=== PATIENT | male | born 1950 | race Caucasian/White ===

== ENCOUNTER 2017-11-08 14:50 | Emergency (ER) | payer OTHER ==
[2017-11-08 15:30] VITALS: PULSE 95; BMI 27.3
[2017-11-08 16:12] LABS: BASO % 0.6 % (0-2.0); EOS % 1.1 % (0-4.5); HEMATOCRIT 42.8 % (35.4-49); HEMOGLOBIN 14.9 GM/dL (11.7-16.9); LYMPH % 15.1 % (8-40); MCH 31.7 pg (25.7-33.7); MCHC 34.8 g/dl (32.0-35.9); MEAN CELL VOLUME 91.2 fl (80-96); MEAN PLT VOLUME 7.9 fl (7.5-11.1); MONO % 6.8 % (3.8-10.2); NEUT % 76.4 % (42.8-82.8); PLATELET COUNT 256 K/MM3 (134-434); RDW 13.6 % (11.9-15.9); WHITE BLOOD COUNT 7.7 K/mm3 (4.0-10.0)
--- NOTE | 2017-11-08 16:18 | PDOC ---
Attending Attestation - Resident Resident Name: VipincyrusNicola - ED Attending Attestation I have performed the following: I have examined & evaluated the patient, The case was reviewed & discussed with the resident, I agree w/resident's findings & plan, Exceptions are as noted - HPI HPI: 11/08/17 16:21 67 yo M, no past medical history presenting to the ER with upper and lower extremity weakness Pt has had a wound in the right occipital area No trauma No fevers or chills Pt states this wound has been present for the past year He has been lost to follow up Pt daughter has not seen him in several months and when she saw him today, she brought him to the ER Pt has generalized weakness Otherwise, lesion has not acutely changed 11/08/17 17:35 - Physicial Exam PE: 11/08/17 16:18 GENERAL: The patient is in no acute distress, tamazight speaking. HEAD: Normal EYES: PERRLA, EOMI, sclera anicteric, conjunctiva clear. ENT: Ears normal, nares patent, oropharynx clear without exudates. Moist mucous membranes. NECK: Normal range of motion, supple LUNGS: Breath sounds equal, clear to auscultation bilaterally. No wheezes, and no crackles. HEART: Regular rate and rhythm, normal S1 and S2 without murmur, rub or gallop. ABDOMEN: Soft, nontender, EXTREMITIES: Normal range of motion NEUROLOGICAL: Cranial nerves II through XII grossly intact. Normal speech. No focal neurological deficits. SKIN: Right occipital scalp/neck, fungating lesion noted, which is OPEN, appears to be bleeding, no surrounding erythema, no purulence, no warmth 11/08/17 17:37 - Medical Decision Making 11/08/17 16:24 67 yo m presenting to the ER with 1 year wound which has worsened and is now fungating AND generalized weakness Will do Labs EKG Head CT EKG: SR 93 bpm, axis nml, intervals nml, no st elevations or depressions 11/08/17 17:34 Laboratory Tests 11/08/1718 18 16:00 16:00 16:00 WBC 7.7 Hgb 14.9 Hct 42.8 Plt Count 256 INR 0.96 Sodium 139 Potassium 4.1 Chloride 104 Carbon Dioxide 26 BUN 15 Creatinine 0.7 Random Glucose 101 11/08/17 17:38 CT: negative Pt ambulatory with a steady gait in the ER Will discharge to home Will ask pt to follow up with [facility] on FRIDAY Daughter asked to bring him to the resident walk in clinic on Friday If they are unable to follow up, the patient should be brought back to the ER The patient has no signs of erythema to suggest cellulitis (Will not start antibiotics) This patient's daughter was told that these symptoms could possibly be related to cancer 11/08/17 23:10 Clinical impression: fungating lesion of the neck Discharge Disposition - Diagnosis Skin lesion - Discharge Dispostion Disposition: HOME Condition at time of disposition: Stable - Referrals Referrals: Teodoro Moore MD [Staff Physician] - Alea Browne MD [Staff Physician] - - Patient Instructions Additional Instructions: Please return to the ER if symptoms persist, worsen, or new symptoms arise. Please follow up with the resident clinic on Friday. Please call Dr. Browne (heme /oncology) on Friday morning to schedule an appointment. Please return to the ER if you have any signs or symptoms of chest pain, shortness of breath, uncontrollable fever, chills, nausea, vomiting, numbness, tingling, or weakness in any part of your body, changes in vision, or slurred speech. - Post Discharge Activity
[2017-11-08 16:27] LABS: INR 0.96 (0.82-1.09); PROTHROMBIN TIME (PATIENT) 10.8 SEC (9.98-11.88)
--- NOTE | 2017-11-08 16:32 | PDOC ---
History of Present Illness - General Chief Complaint: Wound Stated Complaint: WOUND INFECTION, SHAKING Time Seen by Provider: 11/08/17 15:37 History Source: Patient, Family (Daughter at bedside translating) Exam Limitations: No Limitations - History of Present Illness Initial Comments: 11/08/17 16:19 The patient is a 67M with no PMH (has not seen a physician in 5+ years) who presents with a wound. The patient is with his daughter who helps provide some of the history. The patient states that 1 year ago he felt something on his neck and never thought of it. He has since been taking care of it until his daughter told him to come to the ER today. He states that he's had this wound for 1 year. He also states that he's felt weakness in his upper extremities and lower extremities. He denies any fever, chills, weakness, nausea, vomiting, CP, SOB. Past History - Past Medical History Allergies/Adverse Reactions: Allergies Allergy/AdvReac Type Severity Reaction Status Date / Time No Known Allergies Allergy Verified 11/08/17 15:00 Home Medications: Ambulatory Orders NK [No Known Home Medication] 11/08/17 COPD: No Other medical history: hard of hearing, wears hearing aide. - Surgical History Appendectomy: Yes (1986) - Suicide/Smoking/Psychosocial Hx Smoking History: Never smoked Have you smoked in the past 12 months: No Information on smoking cessation initiated: No Hx Alcohol Use: No Drug/Substance Use Hx: No Substance Use Type: None Review of Systems - Review of Systems Able to Perform ROS?: Yes Comments:: 11/08/17 16:32 GENERAL/CONSTITUTIONAL: Positive for weakness. No fever or chills. HEAD, EYES, EARS, NOSE AND THROAT: No change in vision. No ear pain or discharge. No sore throat. CARDIOVASCULAR: No chest pain, palpitations, or lightheadedness. RESPIRATORY: No cough, wheezing, shortness of breath, or hemoptysis. GASTROINTESTINAL: No nausea, vomiting, diarrhea, constipation, or abdominal pain. GENITOURINARY: No dysuria, frequency, hematuria, or change in urination. MUSCULOSKELETAL: No joint or muscle swelling or pain. No neck or back pain. SKIN: Positive for lesion. NEUROLOGIC: No headache, numbness, tingling, weakness, loss of consciousness, or change in strength/sensation. ENDOCRINE: No increased thirst. No abnormal weight change. HEMATOLOGIC/LYMPHATIC: No anemia, easy bleeding, or history of blood clots. ALLERGIC/IMMUNOLOGIC: No hives or skin allergy. Is the patient limited [place] proficient: No *Physical Exam - Vital Signs Last Vital Signs Temp Pulse Resp BP Pulse Ox 98.1 F 95 H 20 148/95 95 11/08/17 15:27 11/08/17 15:27 11/08/17 15:27 11/08/17 15:27 11/08/17 15:27 - Physical Exam Comments: 11/08/17 16:36 GENERAL: Well developed, well nourished. Awake and alert. No acute distress. HEENT: Normocephalic, atraumatic. Hearing grossly normal. Moist mucous membranes. PERRLA, EOMI. No conjunctival pallor. Sclera are non-icteric. NECK: Supple. Full ROM. No JVD. No lymphadenopathy. CARDIOVASCULAR: Regular rate and rhythm. No murmurs, rubs, or gallops. PULMONARY: No evidence of respiratory distress. Lungs clear to auscultation bilaterally. No wheezing, rales or rhonchi. ABDOMINAL: Soft. Non-tender. Non-distended. No rebound or guarding. No organomegaly. Normoactive bowel sounds. MUSCULOSKELETAL: Normal range of motion at all joints. No bony deformities or tenderness. EXTREMITIES: No cyanosis. No clubbing. No edema. No calf tenderness. SKIN: 3 cm irregular fungated lesion, no excoriations or necrotic areas. Rest of skin: warm and dry. Normal capillary refill. No rashes. No jaundice. NEUROLOGICAL: Alert, awake, appropriate. Cranial nerves 2-12 intact. No motor deficits in the in face, upper extremities and lower extremities. Normal speech. Gait is normal without ataxia. PSYCHIATRIC: Cooperative. Good eye contact. Appropriate mood and affect. Heart Score/ECG Review #1 ECG reviewed & interpreted by me at: 16:37 General ECG Interpretation: Sinus Rhythm, Normal Rate, Normal Intervals, No acute ischemic changes Compared to previous ECG there are: Previous ECG unavail 11/08/17 16:37 NSR Rate 93 SC 176 QRS 80 QTc 435 No acute ischemic changes ED Treatment Course - LABORATORY CBC & Chemistry Diagram: 11/08/17 16:00 11/08/17 16:00 - RADIOLOGY Radiology Studies Ordered: Category Date Time Status HEAD CT WITHOUT CONTRAST [CT] Stat CT Scan 11/08/17 15:58 Ordered Medical Decision Making - Medical Decision Making 11/08/17 16:38 The patient is a 67M with unknown PMH who presents to the ER with a lesion on his neck and diffuse weakness. Ddx for the lesion is abscess vs malignancy. Pending labs and imaging. 11/08/17 17:21 Labs WNL. Preliminary read of head CT negative. Pending official read and disposition. 11/08/17 18:55 CT head negative for acute pathology. Will d/c pt with resident clinic f/u and heme/onc f/u with daughter. *DC/Admit/Observation/Transfer Diagnosis at time of Disposition: Skin lesion - Discharge Dispostion Disposition: HOME Condition at time of disposition: Stable Admit: No - Referrals Referrals: Alea Browne MD [Staff Physician] - Teodoro Moore MD [Staff Physician] - - Patient Instructions Additional Instructions: Please return to the ER if symptoms persist, worsen, or new symptoms arise. Please follow up with the resident clinic on Friday. Please call Dr. Browne (heme /oncology) on Friday morning to schedule an appointment. Please return to the ER if you have any signs or symptoms of chest pain, shortness of breath, uncontrollable fever, chills, nausea, vomiting, numbness, tingling, or weakness in any part of your body, changes in vision, or slurred speech. - Post Discharge Activity
[2017-11-08 16:34] VITALS: BP 155/96; TEMP 98.2
[2017-11-08 17:03] LABS: ALBUMIN 4.1 g/dl (3.4-5.0); ALK PHOS 100 U/L (45-117); ANION GAP 9 (8-16); BILIRUBIN,TOTAL 0.4 mg/dL (0.2-1.0); BLOOD UREA NITROGEN 15 mg/dL (7-18); CALCIUM 8.7 mg/dL (8.5-10.1); CHLORIDE 104 mmol/L (98-107); CO2 26 mmol/L (21-32); CREATININE 0.7 mg/dL (0.7-1.3); GLUCOSE,RANDOM 101 mg/dL (74-106); POTASSIUM 4.1 mmol/L (3.5-5.1); SGOT/AST 25 U/L (15-37); SGPT/ALT 31 U/L (12-78); SODIUM 139 mmol/L (136-145); TOT PROT 7.5 g/dl (6.4-8.2)
--- NOTE | 2017-11-09 11:09 | EKG ---
Test Reason : Blood Pressure : / mmHG Vent. Rate : 093 BPM Atrial Rate : 093 BPM P-R Int : 176 ms QRS Dur : 080 ms QT Int : 350 ms P-R-T Axes : 033 008 024 degrees QTc Int : 435 ms NORMAL SINUS RHYTHM NORMAL ECG NO PREVIOUS ECGS AVAILABLE Confirmed by ELLIOTT RIVERO MD ([id number]) on 11/09/2017 11:08:47 AM Referred By: Confirmed By:ELLIOTT RIVERO MD
== END 2017-11-08 19:24 | disposition home or self-care (01) ==
LOC: JER 14:50
DX: L98.8 Other specified disorders of the skin and subcutaneous tissue (principal); H91.93 Unspecified hearing loss, bilateral
CPT/HCPCS: 36415; 70450-TC; 80053; 83735; 85025; 85610; 87070; 87076; 87077; 87186; 87205; 93005; 93010; 99284-25